=== PATIENT | female | born 1975 | race Caucasian/White ===

== ENCOUNTER 2021-10-05 16:27 | Outpatient (REF) | payer BC, SELFPAY ==
[2021-10-05 17:55] LABS: TSH 2.86 uIU/mL (0.36-3.74)
== END 2021-10-05 16:28 | disposition home or self-care (01) ==
LOC: NCHCN 16:27
PROVIDERS: Visit Provider Physician Assistant
DX: E03.9 Hypothyroidism, unspecified (principal)
CPT/HCPCS: 84443

== ENCOUNTER 2023-07-03 15:56 | Outpatient (REF) | payer BC, SELFPAY ==
[2023-07-03 17:10] LABS: TSH 0.51 uIU/Ml (0.36-3.74)
== END 2023-07-03 15:57 | disposition home or self-care (01) ==
LOC: NCHCN 15:56
PROVIDERS: Visit Provider Physician Assistant
DX: E03.9 Hypothyroidism, unspecified (principal)
CPT/HCPCS: 84443

== ENCOUNTER 2023-09-17 08:01 | Day surgery (SDC) | payer BC, SELFPAY ==
--- NOTE | 2023-09-16 18:48 | W.PM.DSUDISC ---
Date of service: 09/17/23 Time of Service: 10:19 Discharge Plan Disposition Patient Disposition: Home Condition: Good Discharge Details Reason For Visit: screening colonoscopy Attending Provider: Hayden Kimbrough Primary Care Provider: Iker Snow Home Meds and New Rx's Prescriptions: Continued levothyroxine 137 mcg capsule 137 mcg PO DAILY budesonide-formoterol [Symbicort] 160-4.5 mcg/actuation HFA aerosol inhaler 1 inh inhalation ONCE Discontinued bisacodyl [Dulcolax (bisacodyl)] 5 mg tablet,delayed release (DR/EC) 5 mg PO ONCE Qty: 4 0RF Rx Instructions: Take per colonoscopy instructions provided by ordering providers office polyethylene glycol 3350 17 gram/dose powder See Rx Instructions .ROUTE .COMPLEX Qty: 238 0RF Dose Instruction: TAKE PER COLONOSCOPY INSTRUCTIONS PROVIDED BY ORDERING PROVIDERS OFFICE Rx Instructions: TAKE PER COLONOSCOPY INSTRUCTIONS PROVIDED BY ORDERING PROVIDERS OFFICE Discharge Instructions Instructions: Colon polyps Additional Instructions: Valerie, we were able to complete your colonoscopy today without much difficulty. Your prep was excellent and I could see everything just fine. I did find and remove a polyp in the first part of your large intestine known as the cecum. It was extremely small. This will be sent off for testing, and once I know the nature of the polyp, we will be in touch regarding the timing of your next colonoscopy. If you have any questions in the meantime, please do not hesitate to ask at any point. 1. If tolerated, consume a soft, low fiber diet for 1-2 days. [address] Do not drive, drink alcohol, operate machinery, make critical decisions, or do activities that require coordination or balance for 24 hours. 3. Because air was put into your colon during the procedure, expelling air from your rectum (passing gas or farting) is normal. 4. You may not have a bowel movement for 1-3 days because of the colonoscopy prep. This is normal. 5. Go directly to the emergency room if you notice any of the following: Develop chills (warm to touch), or if you have a thermometer and your temperature is above 101 Difficulty breathing or difficultly swallowing Persistent vomiting Severe abdominal pain, other than gas cramps Severe chest pain Black, tarry stools Any bleeding ? exceeding one tablespoon 6. Call your physician if the site where your intravenous was started becomes red, swollen, painful, and warm to touch. 7. Your physician has reviewed your pre-procedure medications. Please continue to take those medications as previously ordered. You will be given specific information/education regarding any changes to your medications before leaving. Activity:: Activity as Tolerated Diet:: As Tolerated Discharge Orders Discharge Orders: Discharge Order (Routine); Ordered 09/16/23 Ordered By: Hayden Kimbrough DS: Diagnosis Discharge Diagnosis (1) Encounter for screening colonoscopy: Status: Acute Asessment and Plan: Follow-up on polypectomy results
--- NOTE | 2023-09-16 18:50 | W.COLOREPORT ---
Date of service: 09/17/23 Time of Service: 10:20 Colonoscopy Report Date of procedure: 09/17/23 Pre-op diagnosis general: screening colonoscopy Post-op diagnosis procedure note: other (Cecal polyp) Procedure: colonoscopy with polypectomy Surgeon: Hayden Kimbrough Anesthesia Type: General:No Airway Estimated blood loss (mL): 5 Pathology: other (0.25 cm cecal polyp) Complications: None Disposition: same day Indications: Valerie is a 48 year old woman who needs a screening colonocsopy Prep: Miralax/Dulcolax Procedure Start Time: 09:54 Procedure End Time: 10:10 Retraction Time: 10 Findings: 0.25 cm flat cecal polyp Procedure Description: After the induction of anesthesia, and with the patient in left lateral decubitus position, I began by performing an external anorectal exam.? Perineum and skin were normal, as was the anal verge.? There was no evidence of external hemorrhoids.? Next, I performed a digital rectal exam.? I did not appreciate any abnormal findings.? Next, I advanced a colonoscope into the rectal vault.? I performed retroflexion.? This was normal.? Using insufflation, I then advanced the colonoscope beyond the rectal folds and into the sigmoid colon before advancing towards the cecum.? The quality of the prep was excellent.? The scope was noted to be in the cecum by identification of the ileocecal valve and appendiceal orifice.? The upper portion of the cecum was a small flat polyp. It was less than 0.25 cm. This was removed with cold forceps without any issues. I then began withdrawing the colonoscope using repeated irrigation as necessary for full evaluation of the colonic mucosa. ?Once the scope was withdrawn to the level of the rectum, great care was taken to examine portions of the rectal folds.? Finally, the scope was withdrawn and the patient was brought to the same-day surgery recovery unit as the anesthetic wore off. ?The findings and instructions were shared with the patient prior to discharge. Armstrong Bowel Prep Armstrong Bowel Prep Right Colon: 3 Left Colon: 3 Transverse Colon: 3 Total Score: 9
[2023-09-17 08:47] VITALS: BP 106/71; PULSE 66; RESP 16; TEMP 36.2; O2SAT 100
[2023-09-17] MEDS: Lactated Ringers 1,000 ML 80 ML IV (09:13)
[2023-09-17 09:44] VITALS: BMI 23.1
--- NOTE | 2023-09-17 09:44 | W.ANESPRE ---
General Info Date of Service Date Performed: 09/17/23 Height: 5 ft 4 in Weight: 61.3 kg Body Mass Index (BMI): 23.1 Surgical Procedure: Operation Date: 09/17/23 10:20 Proposed Procedure Side Surgeon p Colonoscopy Hayden Kimbrough MD Actual Procedure Side Surgeon p Colonoscopy Not Applicable Hayden Kimbrough MD Meds Allergies and Home Medications Allergies Allergy/AdvReac Type Severity Reaction Status Date / Time Penicillins Allergy Unknown unknown Verified 09/17/23 08:44 Home Medication Medication Instructions Recorded budesonide-formoterol HFA 160 1 inh inhalation ONCE 08/13/23 mcg-4.5 mcg/actuation aerosol inhaler (Symbicort) levothyroxine 137 mcg capsule 137 mcg PO DAILY 08/13/23 Current Visit Medications: Current Medications Generic Name Dose Route Start Last Admin Trade Name Freq PRN Reason Stop Dose Admin Hyoscyamine Sulfate 0.125 mg 09/16/23 18:51 Hyoscyamine 0.125 Mg Sl/Oral/Chew SL 10/16/23 18:50 DIRECTED PRN Ringer's Solution 1,000 mls @ 80 mls/hr 09/17/23 06:00 09/17/23 09:13 IV 10/14/23 23:59 80 mls/hr INFUSION BECCA Administration IV Miscellaneous Supplies 1 each 09/17/23 06:00 Iv Access IV 10/14/23 23:59 DIRECTED BECCA Ondansetron HCl 4 mg 09/16/23 18:51 Ondansetron 4 Mg/2 Ml Vial IVP 10/16/23 18:50 Q4H PRN PRN Nausea / Vomiting Sodium Chloride 0 ml 09/17/23 06:00 Normal Saline Flush 10 Ml Syr IV 10/14/23 23:59 PRN PRN Sodium Chloride 0 ml 09/17/23 06:00 Normal Saline 10 Ml Vial IJ 10/14/23 23:59 DIRECTED PRN Sterile Water 0 ml 09/17/23 06:00 Water,Injection,Sterile 10 Ml Vial IJ 10/14/23 23:59 DIRECTED PRN PFSH Active Problems Active Problems: Problem Status Onset Code Encounter for screening colonoscopy Z12.11 Medical History Medical History Acute upper respiratory infection Moderate persistent asthma, uncomplicated Pain, joint, knee, left Vitiligo Migraine Hypothyroidism Neurofibromatosis, type 1 Tobacco Smoking/Tobacco Use Status: Never Alcohol Alcohol Intake: current Alcohol intake frequency: holidays/special occasions only Substance Use Substance use type: does not use Vital Signs and Lab Results Vital Signs Most Recent Vital Signs in EMR: Most Recent Vital Signs Temp Pulse Resp BP Pulse Ox 36.2 C L 66 16 106/71 100 09/17/23 08:47 09/17/23 08:47 09/17/23 08:47 09/17/23 08:47 09/17/23 08:47 Point of Care Results Point of Care Results: POC- Test(urine) Negative 09/17/23 08:47 Lab Results Blood Type / Crossmatch: No Data to Display Complete Blood Count: No Data to Display Complete Metabolic Panel: No Data to Display Liver Function Panel: No Data to Display Coagulation Panel: No Data to Display Cardiac Panel: No Data to Display Arterial Blood Gas: No Data to Display Venous Blood Gas: No Data to Display Pancreas Panel: No Data to Display Thyroid Panel: No Data to Display Infectious Disease: No Data to Display Blood Cultures: No Data to Display Toxicology Panel: No Data to Display Panel: No Data to Display Anesthesia Assessment and Plan Anesthesia History Personal History: No History of Anesthesia Complications Family History: No Family History of Anesthesia Complications Exercise Tolerance Exercise Tolerance: Metabolic Equivalents>4 Pertinent Negatives Pertinent Negatives: No Symptoms of GERD Cardiac & Pulmonary Exam Cardiac Exam: Normal S1/S2 Heart Sounds Pulmonary Exam: Clear Bilateral Breath Sounds Implantable Cardiac Device Does patient have a Pacemaker or an ICD?: No Airway Exam Known Difficult Airway: No Mallampati Class: 2 Mouth Opening: Normal (> 3cm) Thyromental Distance: Greater than 3 cm Neck Range of Motion: Full ROM Neck Circumference: Normal Teeth Condition: Normal Dentition ASA Classification ASA Score: ASA 2 Emergency Case?: No NPO Status NPO Status: NPO Clears >2 hours, Solids >8 hours Status Status: Negative HCG Anesthesia Plan Resuscitation Status: Full Code Anesthesia Technique: General Anesthesia Airway Planned: Natural Airway Monitors Used: Standard Monitors
--- NOTE | 2023-09-17 10:01 | BOWEL_PTH ---
PATIENT: Valerie Gomez LOC: [facility] U#:[id number] AGE/SX: 48/F ROOM: RE09/17/[address]: Hayden Kimbrough MD : 1975 BED: DIS: 09/17/2023 SPEC #: [id number] RECD: 09/17/23 12:51 STATUS: [facility] REQ #: [id number] PARVEZ: 09/17/23 10:[address]: Hayden Kimbrough DEPT: Surgical Specimen RECD BY: Valeria Lopes ENTERED: 09/17/23 12:51 SP TYPE: Bowel OTHR DR: Iker Snow Tissues: 1 - BIOPSY BOWEL Procedures: GROSS AND MICRO LEVEL 4 Comments: [id number]
[2023-09-17 10:15] VITALS: BP 103/57; PULSE 82; RESP 16; TEMP 36.2; O2SAT 100
--- NOTE | 2023-09-17 10:26 | W.ANESPOSTOP ---
Postoperative Evaluation Date, Time and Location Date Performed: 09/17/23 Time Performed: 10:26 Patient Location: Day Surgery Unit Vital Signs Most Recent Imported Vital Signs: Most Recent Vital Signs Temp Pulse Resp BP Pulse Ox 36.2 C L 66 16 106/71 100 09/17/23 08:47 09/17/23 08:47 09/17/23 08:47 09/17/23 08:47 09/17/23 08:47 Pain Score Most Recent Pain Score: Most Recent Pain Score Pain Level 0 09/17/23 08:47 Assessment Mental Status: Awake (Alert & Oriented to Patient Baseline) Airway and Respiratory Function: Patent airway with normal (patient baseline) respiratory exam Cardiovascular Function: Hemodynamically Stable Hydration Status: Adequately Hydrated Nausea & Vomiting: No Nausea or Vomiting Pain: Pt. Denies Any Pain Peripheral Nerve Block: Patient did not receive a nerve block
[2023-09-17 10:35] VITALS: BP 118/78; PULSE 76; RESP 16; TEMP 36.3; O2SAT 100
== END 2023-09-17 11:05 | disposition home or self-care (01) ==
LOC: SUR 08:01
PROVIDERS: PCP Physician Assistant; Visit Provider Surgery
PROC: 0DJD8ZZ Inspection of Lower Intestinal Tract, Via Natural or Artificial Opening Endoscopic (ICD-10-PCS; CPT 45378; principal; 2023-09-17 10:15)
DX: Z12.11 Encounter for screening for malignant neoplasm of colon (principal); K51.40 Inflammatory polyps of colon without complications
CPT/HCPCS: 45380; 81025; 88305; J2001; J2704

== ENCOUNTER 2024-06-04 12:27 | Day surgery (SDC) | payer BC, SELFPAY ==
[2024-06-04] VITALS (24 sets, daily range): BP systolic 102–125; BP diastolic 72–84; PULSE 58–75; RESP 12–18; TEMP 36.2–37; O2SAT 96–100; BMI 22.6
[2024-06-04] MEDS: Lactated Ringers 1,000 ML 80 ML IV (13:30)
[2024-06-04] MEDS: Celecoxib 200 MG CAP 400 MG PO (13:35)
[2024-06-04] MEDS: Acetaminophen 500 MG TAB 1000 MG PO (13:35)
--- NOTE | 2024-06-04 13:38 | W.PM.DSUDISC ---
Date of service: 06/04/24 Discharge Plan Disposition Patient Disposition: Home Condition: Good Discharge Details Reason For Visit: L knee arthroscopy Attending Provider: Yasir Yeh Primary Care Provider: Iker Snow Home Meds and New Rx's Prescriptions: New hydrocodone-acetaminophen 5-325 mg tablet 1 tab PO Q6H PRN (Reason: pain) Qty: 10 0RF acetaminophen 500 mg tablet 1,000 mg PO TID Qty: 90 0RF ibuprofen 600 mg tablet 600 mg PO TID PRN (Reason: pain) Qty: 90 0RF Continued levothyroxine 125 mcg capsule 125 mcg PO DAILY budesonide-formoterol [Symbicort] 160-4.5 mcg/actuation HFA aerosol inhaler 1 inh inhalation DAILY PRN Discharge Instructions Stand Alone Forms: Ruba Knee Arthroscopy Referrals: Yasir Yeh MD [ [facility] STAFF PHYSICIAN] - Equipment/Supplies: Partial Weight Bearing Crutches Activity:: Activity as Tolerated Remove Dressings/Wound Care:: 72 hours Shower/Bathe:: 72 hours Diet:: As Tolerated Discharge Orders Discharge Orders: Discharge Order (Routine); Ordered 06/04/24 Ordered By: Samson Roy DS: Diagnosis Discharge Diagnosis (1) Internal derangement of left knee: Status: Acute
--- NOTE | 2024-06-04 13:55 | W.ANESPRE ---
General Info Date of Service Date Performed: 06/04/24 Height: 5 ft 4 in Weight: 59.9 kg Body Mass Index (BMI): 22.6 Surgical Procedure: Operation Date: 06/04/24 14:40 Proposed Procedure Side Surgeon p Knee Arthroscopy Left Yasir Yeh MD Meds Allergies and Home Medications Allergies Allergy/AdvReac Type Severity Reaction Status Date / Time Penicillins Allergy Intermediate Hives Verified 06/04/24 13:04 Home Medication ?Medication ?Instructions ?Recorded budesonide-formoterol HFA 160 1 inh inhalation DAILY PRN 05/01/24 mcg-4.5 mcg/actuation aerosol inhaler (Symbicort) levothyroxine 125 mcg capsule 125 mcg PO DAILY 05/01/24 acetaminophen 500 mg tablet 1,000 mg (2 x 500 mg) PO TID #90 06/04/24 tabs hydrocodone 5 mg-acetaminophen 325 1 tab PO Q6H PRN pain #10 tabs 06/04/24 mg tablet ibuprofen 600 mg tablet 600 mg PO TID PRN pain #90 tabs 06/04/24 Current Visit Medications: Current Medications Generic Name Dose Route Start Last Admin Trade Name Freq PRN Reason Stop Dose Admin Acetaminophen 1,000 mg 06/04/24 06:00 06/04/24 13:35 Acetaminophen 500 Mg Tab PO 06/04/24 23:59 1,000 mg PREOP BECCA Administration Acetaminophen 650 mg 06/04/24 13:38 Acetaminophen 325 Mg Tab PO 07/04/24 13:37 Q4H PRN PRN Hydrocodone Bitart/Acetaminophen 0 tab 06/04/24 13:38 Hydrocodone 5/Acetaminophen 325 Tab PO 07/04/24 13:37 Q3H PRN PRN Pain Celecoxib 400 mg 06/04/24 06:00 06/04/24 13:35 Celecoxib 200 Mg Cap PO 06/04/24 23:59 400 mg PREOP BECCA Administration Ringer's Solution 1,000 mls @ 80 mls/hr 06/04/24 06:00 06/04/24 13:30 IV 06/04/24 23:59 80 mls/hr INFUSION BECCA Administration Cefazolin Sodium/Dextrose 2 gm in 50 mls @ 100 mls/hr 06/04/24 06:00 Ancef Duplex IVPB 06/04/24 23:59 PREOP BECCA Tranexamic Acid/Sodium Chloride 1,000 mg in 100 mls @ 600 mls/hr 06/04/24 06:00 IVPB 06/04/24 23:59 PREOP BECCA IV Miscellaneous Supplies 1 each 06/04/24 06:00 Iv Access IV 06/04/24 23:59 DIRECTED BECCA Sodium Chloride 0 ml 06/04/24 06:00 Normal Saline Flush 10 Ml Syr IV 06/04/24 23:59 PRN PRN Sodium Chloride 0 ml 06/04/24 06:00 Normal Saline 10 Ml Vial IJ 06/04/24 23:59 DIRECTED PRN Sterile Water 0 ml 06/04/24 06:00 Water,Injection,Sterile 10 Ml Vial IJ 06/04/24 23:59 DIRECTED PRN PFSH Active Problems Active Problems: Problem Status Onset Code Internal derangement of left knee Acute M23.92 Encounter for screening colonoscopy Acute Z12.11 Medical History Medical History Inflammatory polyps of colon (~09/2023) Acute upper respiratory infection Moderate persistent asthma, uncomplicated Pain, joint, knee, left Vitiligo Migraine Hypothyroidism Neurofibromatosis, type 1 Surgical History Surgical History History of colonoscopy (~09/2023) Tobacco Smoking/Tobacco Use Status: Never Alcohol Alcohol Intake: current Alcohol intake frequency: holidays/special occasions only Substance Use Substance use: Never Substance use type: does not use Vital Signs and Lab Results Vital Signs Most Recent Vital Signs in EMR: Most Recent Vital Signs Temp Pulse Resp BP Pulse Ox 37 C 63 16 120/84 100 06/04/24 13:06 06/04/24 13:06 06/04/24 13:06 06/04/24 13:06 06/04/24 13:06 Point of Care Results Point of Care Results: POC- Test(urine) Negative 06/04/24 13:40 Lab Results Blood Type / Crossmatch: No Data to Display Complete Blood Count: No Data to Display Complete Metabolic Panel: No Data to Display Liver Function Panel: No Data to Display Coagulation Panel: No Data to Display Cardiac Panel: No Data to Display Arterial Blood Gas: No Data to Display Venous Blood Gas: No Data to Display Pancreas Panel: No Data to Display Thyroid Panel: No Data to Display Infectious Disease: No Data to Display Blood Cultures: No Data to Display Toxicology Panel: No Data to Display Panel: No Data to Display Anesthesia Assessment and Plan Anesthesia History Personal History: No History of Anesthesia Complications Family History: No Family History of Anesthesia Complications Exercise Tolerance Exercise Tolerance: Metabolic Equivalents>4 Pertinent Negatives Pertinent Negatives: No Symptoms of GERD Cardiac & Pulmonary Exam Cardiac Exam: Normal S1/S2 Heart Sounds Pulmonary Exam: Clear Bilateral Breath Sounds Implantable Cardiac Device Does patient have a Pacemaker or an ICD?: No Airway Exam Known Difficult Airway: No Mallampati Class: 2 Mouth Opening: Normal (> 3cm) Thyromental Distance: Greater than 3 cm Neck Range of Motion: Full ROM Neck Circumference: Normal Teeth Condition: Normal Dentition ASA Classification ASA Score: ASA 2 Emergency Case?: No NPO Status NPO Status: NPO Clears >2 hours, Solids >8 hours Status Status: Negative HCG Anesthesia Plan Resuscitation Status: Full Code Anesthesia Technique: General Anesthesia Airway Planned: LMA Monitors Used: Standard Monitors and SedLine
--- NOTE | 2024-06-04 13:59 | W.PREOPHP ---
Assessment and Plan Assessment and plan (1) Internal derangement of left knee: Status: Acute Assessment and plan: Valerie is a 48-year-old female who is here today for diagnostic arthroscopy with intervention of meniscus and soft tissue was indicated. I reviewed the tentacle details of the surgery. I discussed the risk to include bleeding, infection, pain, stiffness, continued symptoms, recurrence, read tear, worsening arthritis, need for repeat procedures, blood clot. Despite these risk, she elects to proceed. History of Present Illness History of Present Illness Chief Complaint: Left knee pain Narrative: Valerie is a 48-year-old active female who has a complex history about her left knee. Please of the previous office note for complete detailed history. She has clinical findings consistent with meniscal tear or impinging scar tissue from her multiple procedures and surgeries. Given the failure of other nonoperative options she is here today for diagnostic arthroscopy with likely meniscal intervention and synovectomy as indicated. She denies any new medical history. No chest pain or shortness of breath. No new trauma. Review of Systems All systems reviewed & are unremarkable except as noted in HPI and below PFSH All Active Problems Internal derangement of left knee (Acute) Encounter for screening colonoscopy (Acute) Medical History Inflammatory polyps of colon (~09/2023) Acute upper respiratory infection Moderate persistent asthma, uncomplicated Pain, joint, knee, left Vitiligo Migraine Hypothyroidism Neurofibromatosis, type 1 Surgical History History of colonoscopy (~09/2023) Social History Smoking/Tobacco Use Status: Never Smoking risk assessment performed?: Yes Alcohol Intake: current Alcohol Intake frequency: holidays/special occasions only Drug use: Never Substance use type: does not use Housing: house Additional Social history: [employer] Meds Allergies and Home Medications Allergies Allergy/AdvReac Type Severity Reaction Status Date / Time Penicillins Allergy Intermediate Hives Verified 06/04/24 13:04 Home Medications ?Medication ?Instructions ?Recorded ?Confirmed ?Type budesonide-formoterol HFA 160 1 inh inhalation DAILY PRN 05/01/24 06/04/24 History mcg-4.5 mcg/actuation aerosol inhaler (Symbicort) levothyroxine 125 mcg capsule 125 mcg PO DAILY 05/01/24 06/04/24 History acetaminophen 500 mg tablet 1,000 mg (2 x 500 mg) PO TID #90 06/04/24 Rx tabs hydrocodone 5 mg-acetaminophen 325 1 tab PO Q6H PRN pain #10 tabs 06/04/24 Rx mg tablet ibuprofen 600 mg tablet 600 mg PO TID PRN pain #90 tabs 06/04/24 Rx Exam Const General: cooperative, healthy appearing, comfortable and no acute distress Resp Effort & Inspection: normal respiratory effort Auscultation: clear to auscultation bilaterally Cardio Rate: regular rate Rhythm: regular rhythm Results Last Vital Signs Temp 37 C 06/04/24 13:06 Pulse 63 06/04/24 13:06 Resp 16 06/04/24 13:06 BP 120/84 06/04/24 13:06 Pulse Ox 100 06/04/24 13:06
[2024-06-04] MEDS: ceFAZolin 2 GM/50 ML BAG IVPB (14:05)
[2024-06-04] MEDS: TRANEXAMIC ACID/SOD. CHL. 1,000 MG/100 ML BAG 600 MG IVPB (14:14)
[2024-06-04] MEDS: EPINEPHrine 10 MG/10 ML ML (14:31)
[2024-06-04] MEDS: Bupivacaine 0.25% Pres-Free 30 ML VIAL (14:31)
--- NOTE | 2024-06-04 15:35 | W.ANESPOSTOP ---
Postoperative Evaluation Date, Time and Location Date Performed: 06/04/24 Time Performed: 15:35 Patient Location: Day Surgery Unit Vital Signs Most Recent Imported Vital Signs: Most Recent Vital Signs Temp Pulse Resp BP Pulse Ox 36.2 C L 74 13 113/78 98 06/04/24 15:17 06/04/24 15:26 06/04/24 15:26 06/04/24 15:25 06/04/24 15:26 Pain Score Most Recent Pain Score: Most Recent Pain Score Pain Level 3 06/04/24 15:28 Assessment Mental Status: Awake (Alert & Oriented to Patient Baseline) Airway and Respiratory Function: Patent airway with normal (patient baseline) respiratory exam Cardiovascular Function: Hemodynamically Stable Hydration Status: Adequately Hydrated Nausea & Vomiting: No Nausea or Vomiting Pain: Pain is tolerable per patient Peripheral Nerve Block: Patient did not receive a nerve block
[2024-06-04] MEDS: HYDROcodone 5/Acetaminophen 325 TAB PO (15:54)
--- NOTE | 2024-06-04 17:34 | W.PM.OP ---
Operative Note Operative Note PRE-OP DIAGNOSIS: Left Knee Internal Derangement POST-OP DIAGNOSIS: other (Adhesions and Plica of Medial Knee) PROCEDURE: Arthroscopic Synovectomy (Limited) of Left Knee SURGEON: Yasir Yeh ANESTHESIA TYPE: General LMA/ETT Refer to Anesthesia Record ESTIMATED BLOOD LOSS: 0 PATHOLOGY: none sent COMPLICATIONS: None Patient was transported to: PACU Patient's condition: stable Indications: I have seen Valerie in clinic for mechanical symptoms about the knee after significant trauma and multiple previous surgeries. Nonoperative measures were exhausted but disability and pain persisted. I discussed knee arthroscopy with the patient. I reviewed the risks of the procedure to include, but not limited to, bleeding, infection, pain, stiffness, damage to nerves or vessels, recurrence, blood clot. Despite these risks, the patient elected to proceed. Findings: A diagnostic arthroscopy was performed with the following findings: Suprapatellar Pouch: No significant inflammation, No loose bodies Medial Compartment: No meniscal tear, Intact meniscal root, No significant chondromalacia or signs of arthritis, No loose bodies. There was adhesions and dense scar tissue about the medial femur, corresponding to her poilnt of pain Notch: ACL was mostly absent with some loose fibers remaining, PCL intact Lateral Compartment: No meniscal tear, Intact meniscal root, No significant chondromalacia or signs of arthritis, No loose bodies Patellofemoral Compartment: Grade I chondromalacia, No apparent patellar maltracking Procedure Description: Valerie was greeted in the preoperative holding area where the correct side was identified and marked. The consent was reviewed with the patient and signed. The history and physical was updated. All questions were answered. She was taken back to the operating room. The patient was placed into the supine position on the operating room table. A nonsterile tourniquet was placed high onto the leg but not used. All bony prominences were well padded. Prophylactic antibiotics in the form of Cefazolin were administered. The left leg was then prepped with Chloraprep and draped in a standard fashion with stockinette and extremity drape. A timeout to confirm correct identity, side and site, procedure, allergies, anesthesia, and medical concerns was performed. The leg was placed into a pneumatic leg aldridge, [id number]. A standard lateral portal was made at the lateral border of the patella tendon in line with the inferior pole of the patella, soft spot. The skin and deep tissue was incised sharply and the blunt trochar was inserted atraumatically. A diagnostic arthroscopy was performed and the findings are listed above. The suprapatellar pouch had no significant inflammatory change. The patellofemoral articulation showed Grade I chondromalacia as well as good tracking. Evaluation of the medial aspect of the knee where her symptoms were greatest there was dense scar tissue and adhesions seen between the capsule and the medial femur. The lateral gutter had no loose bodies and the medial gutter had no loose bodies. The knee was brought into some valgus stress in extension to open the medial compartment. A medial portal was made, localized by a spinal needle. The portal was created with an #11 blade through skin and capsule under direct visualization avoiding any meniscal injury. A probe was then inserted into the medial compartment. The medial compartment was fully inspected. The chondral surface of the tibia showed and the surface of the femur showed no significant chondromalacia. The medial meniscus had no meniscal tear. I then performed a debridement of the scar tissue and synovium about the medial knee which was adherent. This was resected with a shaver. The notch was then inspected which showed an partially intact ACL with few fibers remaining and an intact PCL. The leg was then brought into a figure of 4 position. The lateral compartment was fully inspected with the arthroscope and a probe. The chondral surface of the lateral femur showed no significant chondromalacia. The chondral surface of the lateral tibia showed no significant chondromalacia. The lateral meniscus had no meniscal tear. The arthroscope was brought back into the suprapatellar pouch and the leg was in full extension. The knee was thoroughly irrigated with the arthroscopic fluid on high flow and pressure. Inflow was stopped and excess fluid was removed. The wounds were closed with 4-0 Nylon. They were dressed with Xeroform, 4x4 gauze, ABD pad, Kerlix and an ERICA wrap. A cryo-cuff was applied. The patient tolerated the procedure well and was returned to the [facility] area in a stable condition suffering no known complication. Date of Procedure: 06/04/24
== END 2024-06-04 16:50 | disposition home or self-care (01) ==
PROVIDERS: PCP Physician Assistant; Visit Provider Student in an Organized Health Care Education/Training Program
PROC: (CPT 29870; principal; 2024-06-04 14:30)
DX: M67.52 Plica syndrome, left knee (principal); M23.8X2 Other internal derangements of left knee
CPT/HCPCS: 29875; 81025; J0665; J0690; J1100; J2003; J2250; J2405; J2704; J3010